=== PATIENT | female | born 1975 | race Caucasian/White ===

== ENCOUNTER 2021-01-16 14:57 | Outpatient (REF) | payer MEDICARE, MEDICAID, SELFPAY ==
--- NOTE | ~2021-01-16 | MM_ITS ---
EXAMINATION: MM SCREENING DIGITAL MAMMOGRAPHY, BILATERAL CLINICAL INFORMATION: Screening. Asymptomatic. The lifetime risk of breast cancer based on the Tyrer-Cuzick Model is 8.1%. COMPARISON: Mammography: May 18, 2019 and studies dating back to May 05, 2017 TECHNIQUE: Digital mammography is performed in craniocaudal and mediolateral oblique views along with computer-aided detection (CAD). FINDINGS: The breasts are heterogeneously dense, which may obscure small masses (ACR BI-RADS breast composition Category c). There are no significant masses, abnormal calcifications, or other abnormalities. There is motion artifact on left mediolateral oblique projection however patient was difficult to image and was confined to wheelchair. MM/MM screening mammo BI IMPRESSION: There are no significant changes from prior study. ASSESSMENT: BI-RADS 1: Negative RECOMMENDATION: Routine annual mammography screening. This patient's information was entered into a reminder system with a target due date for their next mammogram.
== END 2021-01-16 14:58 | disposition home or self-care (01) ==
LOC: HO.MAMMO 14:57
PROVIDERS: PCP Internal Medicine; Visit Provider Internal Medicine
DX: Z12.31 Encounter for screening mammogram for malignant neoplasm of breast (principal)
CPT/HCPCS: 77063; 77067

== ENCOUNTER 2024-08-11 10:48 | Outpatient (REF) | payer MEDICARE, MEDICAID, SELFPAY ==
--- OUTSIDE RECORDS SUMMARY | 2024-08-11 13:10 | XMS_ITS | Continuity of Care Document ---
Author Organization [facility] Address [address] [place], [place] Phone [phone] Care Team Providers Care Apprentice Lineman Third Step Name Role Phone SEGUNDO KYLE M.D. Care Team Information Rec eiver Unavailable Social History Type Date Description Comments Sex Unknown
--- NOTE | 2024-08-14 08:52 | MHC.AU.HA1 ---
Hearing Aid Evaluation Date of Visit: 08/11/24 Historical Information: Description of Hearing: Mild to moderate sensorineural hearing loss rising back to mild at 8kHz, cookzofia bite. Current personal amplification information, if applicable: none Summary: Linda reports noticing trouble hearing, sometimes better than others. Asks for repetition noted. Selma, who accompanied Linda today notes difficulty gaining Linda's attention. With Linda's degree and configuration of hearing loss, she would be expected to have difficulty hearing even in ideal listening environments. Amplification is recommended to facilitate improved communication. Reviewed options. Recommended RITE style hearing aid. Linda selected rechargeable. Hearing Aid Prescription: Based on the individual?s shared listening needs, communication environments, dexterity, desire for connectivity, and personal preferences, the following prescription for amplification has been made: Right ear: Make, Model, Color: Phonak Audeo L 70 R chestnut Battery Size: Rechargeable Directional Drill Operator/Slim Tube: 2 M Type of Earmold/Dome/CShell/SlimTip: med vented Left ear: Make, Model, Color: Phonak Audeo L 70 R chestnut Battery Size: Rechargeable Directional Drill Operator/Slim Tube: 2 M Type of Earmold/Dome/CShell/SlimTip: med vented Plan of Care: Patient wishes to purchase hearing aids as prescribed Action Taken/Action Needed: Medical Clearance to be requested from PCP/ENT Hearing Instrument Fitting to be scheduled when materials arrive Primary Diagnosis: H90.3 Bilateral Sensorineural Hearing Loss Signature: Provider: Connie Arzola, CCC-A
== END 2024-08-11 10:49 | disposition home or self-care (01) ==
LOC: HO.SH 10:48
PROVIDERS: Visit Provider Physician Assistant
DX: Z01.118 Encounter for examination of ears and hearing with other abnormal findings (principal); Z46.1 Encounter for fitting and adjustment of hearing aid; H90.3 Sensorineural hearing loss, bilateral
CPT/HCPCS: 92557; 92567; 92591

== ENCOUNTER 2024-10-12 10:05 | Outpatient (REF) | payer MEDICARE, MEDICAID, SELFPAY ==
--- OUTSIDE RECORDS SUMMARY | 2024-10-12 11:20 | XMS_ITS | Continuity of Care Document ---
Author Organization [facility] Address [address] [place], [place] Phone [phone] Care Team Providers Care Traffic Observer Name Role Phone SEGUNDO KYLE M.D. Care Team Information Rec eiver Unavailable Social History Type Date Description Comments Sex Unknown
--- NOTE | 2024-10-12 14:16 | MHC.AU.HA2 ---
Hearing Instrument Fitting- Adult- Binaural Date of Visit: 10/12/24 Hearing Instruments Dispensed: Right Ear: Make, Model, Color, Serial Number: Phonak Audeo L 70 R chestnut S#[id number] Medical Accounting Clerk Repair Warranty: 10/10/2024 Medical Accounting Clerk Loss and Damage Warranty: 10/10/2024 [facility] Service Plan: 10/12/25 Battery Size: Rechargeable Contract Consultant/Slim Tube: 0 M Earmold/Dome/CShell/SlimTip: med vented Type of Wax Guard: Cerustop Left Ear: Make, Model, Color, Serial Number: Phonak Audeo L 70 R chestnut S#[id number] Medical Accounting Clerk Repair Warranty: 10/11/2027 Medical Accounting Clerk Loss and Damage Warranty: 10/11/2027 [facility] Service Plan: 10/12/2025 Battery Size: Rechargeable Contract Consultant/Slim Tube: 0 M Earmold/Dome/CShell/SlimTip: med vented Type of Wax Guard: Cerustop Summary of Fitting: Fit with and oriented to binaural Phonak Audeo L 70 R hearing aids. Accompanied by staff members from [facility]. Verified to [facility] adult 5 targets. Counseled on adjustment to amplification. Good subjective comfort and benefit reported. Practiced insertion and removal (staff will assist with this). Reviewed charging, maintenance, precautions. VC disabled. Aids not paired with any devices at this time. Recommendations: Recommendations: A hearing instrument follow-up was scheduled. Diagnosis Code(s): Primary Diagnosis: H90.3 Bilateral Sensorineural Hearing Loss Signature: Provider: Connie Arzola, [facility]
== END 2024-10-12 10:06 | disposition home or self-care (01) ==
LOC: HO.HAP 10:05
PROVIDERS: Visit Provider Family Medicine
DX: Z46.1 Encounter for fitting and adjustment of hearing aid (principal); H90.3 Sensorineural hearing loss, bilateral
CPT/HCPCS: V5011; V5020; V5160; V5261

== ENCOUNTER 2024-11-16 10:33 | Outpatient (REF) | payer MEDICARE, MEDICAID, SELFPAY ==
--- OUTSIDE RECORDS SUMMARY | 2024-11-16 12:15 | XMS_ITS | Continuity of Care Document ---
Author Organization [facility] Address [address] [place], [place] Phone [phone] Care Team Providers Care Fiberglass Pipe Covering Supervisor Name Role Phone SEGUNDO KYLE M.D. Care Team Information Rec eiver Unavailable Social History Type Date Description Comments Sex Unknown
--- NOTE | 2024-11-16 12:24 | MHC.AU.HA3 ---
Hearing Instrument Follow-Up- Binaural Date of Visit: 11/16/24 Right Ear: Kedar, Model, Color, Serial Number: Jeff Buckner 70 R chestkorina S#[id number] Molder Sweep Repair Warranty: 10/10/2024 Molder Sweep Loss and Damage Warranty: 10/10/2024 [facility] Service Plan: 10/12/25 Battery Size: Rechargeable Facilities Operator/Slim Tube: 0 M Earmold/Dome/CShell/SlimTip:sm vented Type of Wax Guard: Cerustop Dispensed By: [facility] Date of Fittin10/12/24 Left Ear: Kedar, Model, Color, Serial Number: Jeff Buckner 70 R chestkorina S#[id number] Molder Sweep Repair Warranty: 10/11/2027 Molder Sweep Loss and Damage Warranty: 10/11/2027 [facility] Service Plan: 10/12/2025 Battery Size: Rechargeable Facilities Operator/Slim Tube: 0 M Earmold/Dome/CShell/SlimTip: sm vented Type of Wax Guard: Cerustop Dispensed By: [facility] Date of Fittin10/12/24 Follow-Up Summary: Here for follow up. Accompanied by care staff. Observed hearing aids not correctly inserted in ear canals upon arrival. Linda reports they pop out. Aside from them popping out frequently she reports the hearing aids help her hear and she likes them. Swapped to small vented domes. Fit looks good. Improved feeling reported by Linda. Recommendations: Recommendations: An additional follow-up was scheduled to monitor progress. Diagnosis Code(s): Primary Diagnosis: H90.3 Bilateral Sensorineural Hearing Loss Signature: Provider: Connie Arzola, [facility]
== END 2024-11-16 10:34 | disposition home or self-care (01) ==
LOC: HO.HAP 10:33
PROVIDERS: Visit Provider Family Medicine
DX: Z13.89 Encounter for screening for other disorder (principal)

== ENCOUNTER 2025-01-15 15:07 | Outpatient (REF) | payer MEDICARE, MEDICAID, SELFPAY ==
--- NOTE | ~2025-01-15 | FL_ITS ---
EXAMINATION: Modified Barium Swallow CLINICAL INFORMATION: Dysphagia. COMPARISON: None. TECHNIQUE: Modified barium swallow was performed under lateral fluoroscopy with patient in standing position. Barium mixed with solids and liquids of different consistencies was administered by the speech pathologist. Examination was recorded in the fluoroscopy suite. FINDINGS: Transient laryngeal penetration was noted on thin liquids, without evidence of glottic or subglottic aspiration. There was early spillover noted with pooling in the vallecula and piriform sinuses, which cleared on subsequent swallows. FLUOROSCOPY TIME: 2 minutes and 3 seconds Number of Spot Images: N/A DOSE AREA PRODUCT: 1099 uGy-m2 (microgray-meter squared) FL/FL Modified Barium Swallow IMPRESSION: Transient laryngeal penetration noted on thin liquids, without evidence of glottic or subglottic aspiration. Refer to the speech therapy report for further clarification Electronically signed by: Hussain Carranza MD 01/15/2025 03:40 PM EDT
--- OUTSIDE RECORDS SUMMARY | 2025-01-15 16:39 | XMS_ITS | Continuity of Care Document ---
Author Organization [facility] Address [address] [place], [place] Phone [phone] Care Team Providers Care Trimmer Machine Name Role Phone SEGUNDO KYLE M.D. Care Team Information Rec eiver Unavailable Social History Type Date Description Comments Sex Female Sex Unknown
--- NOTE | 2025-01-17 08:51 | MHC.SL.IMP ---
Date of Plan of Treatment: 01/15/25 Onset of Symptoms/Illness: 07/17/24 Date Treatment Started: 01/15/25 Admitting Diagnosis: Dysphagia Primary Speech & Language Diagnosis: R13.12 Oropharyngeal Phase Dysphagia Reason for Today's Visit: 74244 Modified Barium Swallow Study Medical History: Modified Barium Swallow Study Fluoroscopic Evaluation of Swallowing Function CPT Code 45993 Evaluation Year: 2024 Reason for Study: Difficulty swallowing Referring Physician: Suzi Nicholas NP Evaluating Clinician: Jovita Ball MA, CCC-DROP HAMMER SETTER UP Study Number: 1 Patient Name: Linda Nuñez Status: Outpatient, Wheelchair Age: 49 Sex: Female Medical History Patient reporting hx of MS Current (pre-evaluation) Intake/Diet: Route: PO Diet Grade: ?Cut up? per patient Liquid Consistencies: Thin Pain: None reported at time of study SUBJECTIVE: Patient is a 49 year old female referred for a modified barium swallow study by Suzi Nicholas NP. Patient was accompanied to this exam by a staff member from her intermediate. Patient reports choking mainly on liquids and having no difficulty with solid food. Patient denies odynophagia and globus sensation. Staff also endorses patient coughs during meals. Patient notes having underlying diagnosis of multiple sclerosis. Oral Motor Exam Facial Symmetry: Symmetrical Mouth Occlusion: Normal Oral-Facial Teeth Characteristics: Intact/Normal Oral-Facial Lip Pucker Description: Normal Oral-Facial Smile (Lips) Description: Normal Oral-Facial Puff Cheeks Description: Normal Tongue Size: Normal Is patient able to manage secretions?: Yes Food and Liquid Trials: Oral Impairment: Lip Closure: 0=No labial escape Oral Impairment: Tongue Control During Bolus Hold: 3=Posterior escape of greater than half of bolus Oral Impairment: Bolus Preparation/Mastication: 2=Disorganized chewing/mashing with solid pieces of bolus Oral Impairment: Bolus Transport/Lingual Motion: 1= Delayed initiation of tongue motion Oral Impairment: Oral Residue: 1=Trace residue lining oral structures Oral Impairment:Initiation of Pharyngeal Swallow: 3=Bolus head in pyriforms Pharyngeal Impairment: Soft Palate Elevation: 0=No bolus between soft palate (SP)/pharyngeal wall (PW) Pharyngeal Impairment: Laryngeal Elevation: 1=Partial thyroid cartilage/arytenoids to epiglottic petiole movement Pharyngeal Impairment: Anterior Hyoid Excursion: 1=Partial anterior movement Pharyngeal Impairment: Epiglottic Movement: 1=Partial inversion Pharyngeal Impairment: Laryngeal Vestibular Closure:: 1=Incomplete: narrow column air/contrast in laryngeal vestibule Pharyngeal Impairment: Pharyngeal Stripping Wave: 0=Present: complete Pharyngeal Impairment: Pharyngeal Contraction: Did not test Pharyngeal Impairment: Pharyngoesophageal Segment Opening: Did not test Pharyngeal Impairment: Tongue Base (TB) Retraction: 2=Narrow column of contrast/air between TB and posterior PW Pharyngeal Impairment: Pharyngeal Residue: 2=Collection of residue within or on pharyngeal structures Pharyngeal Impairment: Esophageal Clearance Upright Position: Did not test Impressions and Recommendations Clinical Observations: OBJECTIVE: Time-out: performed at 15:30 Evaluation Start: 15:00; Stop: 15:10 Patient Positioning: Seated 70-90 degrees Viewing Planes: LATERAL ONLY Contrast: MBSImP? Standardized Protocol using commercially prepared, standardized Barium viscosities, including: Varibar? THIN LIQUID (40% w/v, <15 cps) , Varibar? PUDDING (40% w/v, <5091-8055 cps) , 1/2 Shortbread Cookie (1 x1 x.25 ) [facility] [id number] [facility] Results: Lip closure for intraoral bolus containment resulted in no labial escape. Tongue control during bolus hold allowed posterior escape of greater than half of the bolus. Bolus preparation and mastication demonstrated disorganized chewing/mashing with solid pieces of the bolus unchewed. Bolus transport/lingual motion demonstrated delayed initiation of tongue motion. Oral residue was a trace, lining oral structures. Initiation of the pharyngeal swallow occurred when the bolus head was in the pyriform sinuses. Soft palate elevation resulted in no bolus between the soft palate and the pharyngeal wall. Laryngeal elevation was decreased, with partial superior movement of the thyroid cartilage/partial approximation of the arytenoids to the epiglottic petiole. Anterior hyoid excursion demonstrated partial anterior movement. Epiglottic movement resulted in partial inversion. Laryngeal vestibular closure was incomplete, with a narrow column of air/contrast noted within the laryngeal vestibule at the height of the swallow. Pharyngeal stripping wave was present and complete. Pharyngeal contraction could not be determined due to logistical reasons not related to physiologic impairment. Pharyngoesophageal segment opening could not be assessed due to logistical reasons not related to physiologic impairment. Tongue base retraction allowed a narrow column of contrast or air between the retracted tongue base and the posterior pharyngeal wall. Pharyngeal residue was a collection of residue within or on pharyngeal structures. Esophageal clearance in the upright position could not be assessed due to logistical reasons not related to physiologic impairment. Oral Impairment Score: 9 Pharyngeal Impairment Score: 8 (absence of score, component 13component 14) Esophageal Impairment Score: --- (absence of score, component 17) Laryngeal Penetration and Aspiration: Neither penetration nor aspiration was observed in today's study with Cookie, Pudding-thick. Penetration was observed in today's study. Thin Contrast entered the airway, remained above the vocal folds, and was ejected from the airway. ASSESSMENT: This exam was performed by the radiologist and the speech pathologist. Patient was seated upright at 90 degrees in a wheelchair for lateral view only. She trialed the following consistencies: Thin liquid (individual cup sips) Puree (mixture applesauce with barium pudding) Regular solid (blueberry cookie coated in barium pudding) Note good lip closure with no anterior bolus loss. Poor tongue control with premature posterior spillage of >50% of bolus, which pooled in the valleculae and pyriforms prior to the pharyngeal swallow. Mastication was slowed and disorganized, characterized by piece meal deglutition. Delayed posterior lingual transport. Trace lingual residue seen. Pharyngeal swallow was significantly delayed, initiated as the bolus head reached the pyriforms. No evidence of nasopharyngeal reflux. Partial laryngeal elevation with partial epiglottic inversion and incomplete laryngeal vestibular closure. Trace penetration seen above the vocal folds on trials of thin liquid, which spontaneously cleared. No evidence of aspiration during this exam. Mild pooling in the valleculae and pyriforms effectively cleared on self-initiated secondary swallow. The following compensatory strategies have not been used until today's study, but when employed, improved swallowing function: Additional Swallow(s) per Bolus eliminated Oral Residue, Pharyngeal Residue Liquid Intake Recommendation: Thin Liquid Intake Strategies: Small Sips, No Straws, Double Swallow Dietary Recommendations: Chopped/Advanced (NDD3) Medication Administration: Whole with Puree Please contact the pharmacy regarding appropriate crushable or liquid drug formulations that are available whenever modified delivery is recommended. Compensatory Strategies Recommended: Sitting Upright (90 deg), Double Swallow, No Straw, Small Bites and Sips, Alternate Liquids/Solids, Rate of Ingestion Change Supervision during eating and or drinking: Intermittent Supervision Recommended Treatments: Compens. Strategy Educat. Recommendation for Speech Therapy: Outpatient Speech Therapy Intake Recommendations: Route: PO Diet Grade: Chopped/Advanced (NDD3) Liquid Consistencies: Thin Post-Study Functional Oral Intake Scale (FOIS): 5- Total oral intake of multiple consistencies requiring special preparation This exam revealed mild oropharyngeal dysphagia, marked by poor tongue control with premature posterior spillage, delayed AP transport, significantly delayed swallow trigger, and incomplete laryngeal vestibular closure. There was transient penetration on trial of thin liquid, but no evidence of aspiration. Mild pooling in the valleculae and pyriforms cleared with self-initiated dry swallow. Patient is recommended a CHOPPED/ADVANCED diet (NDD3) for ease of mastication with THIN liquids, and pills WHOLE in PUREE. Patient is able to feed herself, but is recommended periodic supervision at meal to monitor progression throughout meal. General aspiration precautions apply: -remain upright at 90 degrees for optimal positioning during feeding -take small bites and chew food well -alternate bites with sips of liquid to promote clearance -dry swallow after each bite/sip to promote clearance -take one sip at a time -avoid the use of straws Therapy Recommendations: Recommend 1 follow-up visit with DROP HAMMER SETTER UP for further education in regards to MBSS findings and recommended dietary textures and strategies. Clinician - Supplemental, Miscellaneous Communication: It is important to note MBSS objective studies are snapshots in time and Patient function might vary with factors such as time of day or concomitant medical conditions. For this reason, the final treatment plan for this patient should rest with their medical care team. Additional recommendations should be considered with the totality of the Patient in mind. Thank for the opportunity to participate in the care of this patient. If you have any questions about the content of this report, please contact the [facility]. Education: Education regarding findings from today's study and plans for therapy were provided to Patient and family/caregiver through Verbal Instruction, Written Instruction. Understanding was expressed by the Patient and family/caregiver Training Specialist Clinician/Clinical Fellow: No Supervisory Statement: N/A Speech Language Pathologist: Jovita Ball M.A., [facility]-DROP HAMMER SETTER UP
== END 2025-01-15 15:08 | disposition home or self-care (01) ==
LOC: HO.XRAY 15:07
PROVIDERS: PCP Family Medicine; Visit Provider Nurse Practitioner Family
DX: R13.10 Dysphagia, unspecified (principal)
CPT/HCPCS: 74230; 92611

== ENCOUNTER → 2025-01-15 15:20 | Outpatient (BNV) | payer MEDICARE, MEDICAID, SELFPAY | PROVIDERS: PCP Family Medicine; Visit Provider Radiology Diagnostic Radiology | DX: R13.10 Dysphagia, unspecified (principal) | CPT/HCPCS: 74230 ==